=== PATIENT | female | born 1965 | race Caucasian/White ===

== ENCOUNTER 2017-12-04 17:42 | Emergency (ER) | payer BC ==
[~2017-12-04] VITALS: Ht 149.9 cm; Wt 65.7 kg
[~2017-12-04 17:42] MED LIST: ASPIRIN E.C.81 M2 PO; CEFDINIR300 MG PO; CELEBREX200 MG PO; ENDOCET 5-3251 EACH PO; FLINTSTONES1 EACH PO; LEVEMIR FL100 UNITS/ SC; MULTIVITAMIN1 EAC2 PO; NAPROSYN500 MG PO; NOVOLOG PE100 UNITS/ SC; Tums PO; ULTRACET1 TABLET PO; VITAMIN B-125000 MC1 PO; VITAMIN B125000 MCG PO; ZOFRAN ODT4 MG PO
[2017-12-04] MEDS ORDERED: MOBIC7.5 MG PO (19:31)
[2017-12-04 20:04] VITALS: BP 135/63
== END 2017-12-04 20:04 | disposition home or self-care (01) ==
LOC: EME 17:42
DX: S93.601A Unspecified sprain of right foot, initial encounter (principal); W10.1XXA Fall (on)(from) sidewalk curb, initial encounter; K21.9 Gastro-esophageal reflux disease without esophagitis; Z87.442 Personal history of urinary calculi; Z90.49 Acquired absence of other specified parts of digestive tract; Z98.84 Bariatric surgery status; Z88.0 Allergy status to penicillin; Z88.5 Allergy status to narcotic agent; Z88.8 Allergy status to other drugs, medicaments and biological substances
CPT/HCPCS: 73630; 99281; 99284